=== PATIENT | female | born 1970 | race Caucasian/White ===

== ENCOUNTER 2021-09-17 15:38 | Emergency (ER) | payer OTHER ==
[2021-09-17 16:18] LABS: BASOPHIL 0.2 % (0-2); EOSINOPHIL 0 % (0-5); HCT 41.2 % (37.0-47.0); HGB 14.1 g/dl (12.5-16.0); LYMPHOCYTE 19.2 % (15-48); MCH 30.6 pg (25.0-31.0); MCHC 34.2 g/dL (32.0-36.0); MCV 89.4 fL (78.0-100.0); MPV 8.7 fL (6.0-9.5); NEUTROPHIL 73.2 % (41-80); NRBC 0; PLT 160 K/uL (150-400); RBC 4.61 M/uL (4.20-5.40); RDW 13.2 % (11.5-14.0); WBC 4.8 K/uL (4.0-10.5)
[2021-09-17 16:43] LABS: LACTIC ACID 1.1 mmol/L (0.4-1.9)
[2021-09-17 16:48] LABS: ALBUMIN 3.1 g/dL (3.4-5.0); BILIRUBIN - TOTAL 0.8 mg/dL (0.2-1.0); BUN/CREAT RATIO (CALC) 14.1 RATIO; CREATININE 0.71 mg/dL (0.51-0.95); GLOBULIN (CALCULATION) 3.9 g/dL
[2021-09-17 17:16] LABS: BILIRUBIN NEGATIVE (NEGATIVE); BLOOD NEGATIVE Ery/uL (NEGATIVE); CLARITY CLEAR (CLEAR); COLOR YELLOW (YELLOW); GLUCOSE (U) NORMAL (NORMAL); LEUKOCYTES NEGATIVE Leu/uL (NEGATIVE); NITRITE NEGATIVE (NEGATIVE); PROTEIN NEGATIVE (NEGATIVE); SPECIFIC GRAVITY 1.015 (1.001-1.030); UROBILINOGEN 0.2 mg/dL (0.2-1.0)
[2021-09-17] MEDS ORDERED: TESSALON PERLE100 M1 PO ×2 (19:22→19:27)
[2021-09-17] MEDS ORDERED: IMODIUM2 MG PO ×2 (19:22→19:27)
[2021-09-17] MEDS ORDERED: VENTOLIN HFA18 GM INH ×2 (19:22→19:27)
[2021-09-17] MEDS ORDERED: ONDANSETRON ODT4 MG PO ×2 (19:22→19:27)
== END 2021-09-17 20:20 | disposition home or self-care (01) ==
LOC: FER 15:38
PROVIDERS: Emergency Medicine
DX: U07.1 COVID-19 (principal); Z23 Encounter for immunization
CPT/HCPCS: 36415; 71045; 80053; 81003; 83605; 84145; 85025; J7030; M0243; Q0244